=== PATIENT | female | born 1960 | race Caucasian/White ===

== ENCOUNTER 2023-01-07 18:22 | Emergency (ER) | payer MEDICAID ==
[~2023-01-07] VITALS: Ht 167.6 cm; Wt 104.6 kg
[~2023-01-07 18:22] MED LIST: ALPR-304 PO
[2023-01-07 19:22] VITALS: BP 145/100; PULSE 87; RESP 18; TEMP 99.8; O2SAT 96
[2023-01-07] MEDS ORDERED: CLIN-214 PO (22:32)
[2023-01-07] MEDS ORDERED: ACET-1059 PO (22:32)
[2023-01-07] MEDS ORDERED: clindamycin 150mg capsule PO ONE (22:35)
[2023-01-07] MEDS ORDERED: acetaminophen 325mg tablet PO ONE (22:35)
== END 2023-01-07 22:55 | disposition home or self-care (01) ==
LOC: ER 18:23
DX: K08.89 Other specified disorders of teeth and supporting structures (principal); J45.909 Unspecified asthma, uncomplicated; Z87.442 Personal history of urinary calculi; Z88.5 Allergy status to narcotic agent; Z88.6 Allergy status to analgesic agent; Z88.1 Allergy status to other antibiotic agents; Z79.899 Other long term (current) drug therapy; Z79.1 Long term (current) use of non-steroidal anti-inflammatories (NSAID); Z79.2 Long term (current) use of antibiotics
CPT/HCPCS: 99283

== ENCOUNTER 2023-07-23 12:25 | Emergency (ER) | payer MEDICAID ==
[~2023-07-23] VITALS: Ht 167.6 cm; Wt 103.1 kg
[~2023-07-23 12:25] MED LIST changes: +CLIN-214 PO
[2023-07-23 12:36] VITALS: BP 131/89; PULSE 68; RESP 18; O2SAT 98
[2023-07-23] MEDS ORDERED: ACET-3068 PO (13:13)
[2023-07-23] MEDS ORDERED: AMOX600S74 PO (13:13)
[2023-07-23 13:22] VITALS: TEMP 97.8
== END 2023-07-23 13:23 | disposition home or self-care (01) ==
LOC: ER 12:26
DX: K04.7 Periapical abscess without sinus (principal); J45.909 Unspecified asthma, uncomplicated; Z87.442 Personal history of urinary calculi; Z88.5 Allergy status to narcotic agent; Z88.1 Allergy status to other antibiotic agents; Z88.6 Allergy status to analgesic agent; Z79.899 Other long term (current) drug therapy; Z79.1 Long term (current) use of non-steroidal anti-inflammatories (NSAID)
CPT/HCPCS: 99283

== ENCOUNTER 2023-08-12 20:48 | Emergency (ER) | payer MEDICAID ==
[~2023-08-12] VITALS: Ht 170.2 cm; Wt 105.0 kg
[~2023-08-12 20:48] MED LIST changes: +ACET-3068 PO
[2023-08-12 20:58] VITALS: TEMP 99.4
[2023-08-12 21:27] VITALS: BP 141/74; PULSE 84; RESP 14; O2SAT 96
[2023-08-12] MEDS ORDERED: ACET-3068 PO (22:48)
[2023-08-12] MEDS ORDERED: AMOX-117 PO (22:48)
[2023-08-12] MEDS: amox tr/potassium clavulanate 875/125mg TAB PO ONE (22:52)
[2023-08-12] MEDS ORDERED: AMOX600S74 PO (22:57)
== END 2023-08-12 23:21 | disposition home or self-care (01) ==
LOC: ER 20:49
DX: K08.89 Other specified disorders of teeth and supporting structures (principal); J45.909 Unspecified asthma, uncomplicated; Z87.442 Personal history of urinary calculi; Z88.6 Allergy status to analgesic agent; Z88.5 Allergy status to narcotic agent; Z79.899 Other long term (current) drug therapy
CPT/HCPCS: 99283

== ENCOUNTER 2023-10-14 11:11 | Outpatient (CLI) | payer MEDICAID | END 2023-10-14 23:59 | disposition home or self-care (01) | LOC: RAD 11:11 | PROVIDERS: ATTEND Family Medicine | DX: I87.2 Venous insufficiency (chronic) (peripheral) (principal); M71.22 Synovial cyst of popliteal space [Baker], left knee; R60.0 Localized edema | CPT/HCPCS: 93970 ==

== ENCOUNTER 2023-11-07 20:54 | Emergency (ER) | payer MEDICAID ==
[~2023-11-07] VITALS: Ht 170.2 cm; Wt 91.4 kg
[2023-11-07 21:07] VITALS: TEMP 97.5
[2023-11-08] MEDS ORDERED: CEPH-585 PO (01:13)
[2023-11-08] MEDS ORDERED: KEF125L PO (01:32)
[2023-11-08] MEDS: cephalexin 500mg capsule PO ONE (01:34)
[2023-11-08 01:51] VITALS: BP 129/90; PULSE 84; RESP 16; O2SAT 96
== END 2023-11-08 02:03 | disposition home or self-care (01) ==
LOC: ER 20:55
DX: L30.9 Dermatitis, unspecified (principal); J45.909 Unspecified asthma, uncomplicated; Z88.5 Allergy status to narcotic agent; Z88.6 Allergy status to analgesic agent; Z88.1 Allergy status to other antibiotic agents; Z88.8 Allergy status to other drugs, medicaments and biological substances; Z98.51 Tubal ligation status
CPT/HCPCS: 99284

== ENCOUNTER 2024-02-15 21:17 | Emergency (ER) | payer MEDICAID ==
[~2024-02-15] VITALS: Ht 165.1 cm; Wt 90.9 kg
[~2024-02-15 21:17] MED LIST changes: +CEPH-585 PO
[2024-02-15] MEDS ORDERED: AMOX-580 PO (21:49)
[2024-02-15 21:55] VITALS: BP 144/84; PULSE 78; RESP 18; TEMP 98.6; O2SAT 98
== END 2024-02-15 21:56 | disposition home or self-care (01) ==
LOC: ER 21:17
DX: K08.89 Other specified disorders of teeth and supporting structures (principal); J45.909 Unspecified asthma, uncomplicated; Z88.5 Allergy status to narcotic agent; Z88.1 Allergy status to other antibiotic agents; Z88.6 Allergy status to analgesic agent; Z79.2 Long term (current) use of antibiotics; Z79.1 Long term (current) use of non-steroidal anti-inflammatories (NSAID); Z79.899 Other long term (current) drug therapy; Z98.51 Tubal ligation status
CPT/HCPCS: 99283

== ENCOUNTER 2024-04-04 17:23 | Emergency (ER) | payer MEDICAID ==
[~2024-04-04] VITALS: Ht 170.2 cm; Wt 99.1 kg
[2024-04-04 17:26] VITALS: BP 161/86; PULSE 99; RESP 16; TEMP 98.7; O2SAT 96
[2024-04-04] MEDS ORDERED: AMOX400S76 PO (17:50)
[2024-04-04] MEDS ORDERED: ACET10EL PO (17:50)
== END 2024-04-04 18:09 | disposition home or self-care (01) ==
LOC: ER 17:23
DX: K08.89 Other specified disorders of teeth and supporting structures (principal); J45.909 Unspecified asthma, uncomplicated; Z88.1 Allergy status to other antibiotic agents; Z88.6 Allergy status to analgesic agent; Z88.5 Allergy status to narcotic agent; Z98.51 Tubal ligation status; Z87.442 Personal history of urinary calculi
CPT/HCPCS: 99283

== ENCOUNTER 2024-08-20 20:35 | Emergency (ER) | payer MEDICAID ==
[~2024-08-20] VITALS: Ht 170.2 cm; Wt 101.3 kg
[2024-08-20 20:44] VITALS: BP 163/89; PULSE 86; RESP 17; O2SAT 98
== END 2024-08-20 21:17 | disposition home or self-care (01) ==
LOC: ER 20:35
DX: R63.1 Polydipsia (principal); R35.89 Other polyuria; J45.909 Unspecified asthma, uncomplicated; Z87.440 Personal history of urinary (tract) infections; Z88.0 Allergy status to penicillin; Z88.5 Allergy status to narcotic agent; Z88.6 Allergy status to analgesic agent; Z98.51 Tubal ligation status; Z88.1 Allergy status to other antibiotic agents
CPT/HCPCS: 82948; 99282

== ENCOUNTER 2025-03-11 11:23 | Emergency (ER) | payer MEDICAID ==
[~2025-03-11] VITALS: Ht 170.2 cm; Wt 102.3 kg
[~2025-03-11 11:23] MED LIST changes: -CEPH-585 PO
[2025-03-11 11:26] VITALS: BP 151/91; PULSE 92; RESP 18; TEMP 98.4; O2SAT 97
--- NOTE | 2025-03-11 12:20 | Physician Documentation ---
History of Present Illness ~ Chief Complaint: Allergic Reaction Stated Complaint: MED REACTION Time Seen by MD: 12:14 Primary Medical Doctor: [facility] Source: patient Mode of Arrival: POV Exam Limitations: no limitations HPI 64-year-old with dental infection currently on Augmentin liquid on day 2 she is currently taking 3 doses. Patient noticed a little redness and swelling to the gums to the affected tooth in the front and was concerned it was an allergic reaction. There is no other site in her mouth no swelling to her lips no difficulty breathing but she states that she does have difficulty chewing so that is why she had liquid antibiotics. Patient would like medications for pain Medication Reconciliation Allergies: Coded Allergies: Oxycodone Terephthalate (Verified Allergy, Unknown, 03/11/25) acetaminophen (Verified Allergy, Unknown, 03/11/25) amoxicillin (Verified Allergy, Unknown, 03/11/25) aspirin (Verified Allergy, Unknown, 03/11/25) clindamycin (Verified Allergy, Unknown, 03/11/25) ibuprofen (Verified Allergy, Unknown, 03/11/25) naproxen (Verified Allergy, Unknown, 07/23/23) oxycodone HCl (Verified Allergy, Unknown, 07/23/23) prochlorperazine (Verified Allergy, Unknown, 04/04/24) prochlorperazine edisylate (Verified Allergy, Unknown, 01/07/23) prochlorperazine maleate (Verified Allergy, Unknown, 01/07/23) propoxyphene HCl (Verified Allergy, Unknown, 01/07/23) Uncoded Allergies: DARVOCET (Allergy, Unknown, 01/07/23) ERYTHROMYCIN (Allergy, Unknown, 01/07/23) PCN (Allergy, Unknown, 01/07/23) Scheduled Clindamycin HCl (Clindamycin HCl CAPSULE), 1 CAP PO TID Scheduled PRN Acetaminophen With Codeine (Tylenol W/Codeine #3 Tab), 1 TAB PO TID PRN PRN for dental pain Alprazolam* (Xanax*), 0.25 MG PO TID PRN for for anxiety/agitation Past Medical History Past Medical History: Asthma, Kidney Stones Past Surgical History: tubal ligation Alcohol Use: None Drug Use: none Review of Systems All Other Systems at this time: Reviewed and Negative ENT: Reports: see HPI Physical Exam Vital Signs: RN Vital Signs have been reviewed: Yes, Temperature: 98.4, Source: Temporal, Heart Rate: 92, Respiratory Rate: 18, BP: 151/91, Pulse Oximetry: 97, Weight: 102.300 Oxygen Flow Rate: 0 Physical Exam General: Alert, no apparent distress. HEENT: moist mucous membranes. Minimal swelling but erythema to the gum lines to tooth 7. And 8 no obvious fluctuance or abscess otherwise unremarkable Neck: Full range of motion. Respiratory: No respiratory distress speaking in full sentences Chest: No accessory muscle use. Cardiovascular: Appears well perfused Neurologic: Oriented x4. Psychiatric: Normal mood and affect. Skin: Normal color, warm and dry. No edema, no ecchymosis. Progress Results/Orders Results/Orders Vital Signs 03/11/25 11:26 Temp 98.4 Pulse 92 Resp 18 B/P (MAP) 151/91 Pulse Ox 97 O2 Flow Rate 0 Medical Decision Making Findings Patient is on antibiotics noticed some swelling and redness to the gums of the affected teeth that she is currently being treated for with Augmentin dental infection. Patient was concerned it was allergic reaction although no erythema or swelling to her mouth no decreased ability to swallow but to chew which is the reason she is on liquid medications sometimes she has difficulty swallowing but that is not currently new. No other areas that would be indicative of an allergic reaction. Patient is requesting a liquid form pain medication for a couple of days and will follow up Departure Time of Disposition: 12:19 Disposition: 01 HOME / SELF CARE / HOMELESS Impression: Primary Impression: Toothache Condition: Stable Discharge Instructions: Abscessed Tooth, [id number] Additional Instructions: Continue to take oral antibiotics and use pain medication as prescribed follow up with primary care and dental care for further treatment and evaluation tried the origin on the gauze to help with the pain of those gums. Referrals: NO PRIMARY CARE PROVIDER (PCP) Prescriptions Acetaminophen With Codeine (Tylenol W/Codeine #3 Tab) 300 Mg-30 Mg Tablet 1 TAB PO TID PRN PRN for dental pain for 4 Days, #12 TAB Prov: DIVINA JAMESON [employer] 03/11/25 Education Educated: Patient Educated regarding: diagnosis, treatment, need for follow up Signature Scribe Signature: No scribe Attestation: The note accurately reflects work and decisions made by me.Divina NEGRO 03/11/25 12:25 DIVINA JAMESON NP Mar 11, 2025 12:20
[2025-03-11] MEDS ORDERED: ACET-3068 PO (12:24)
== END 2025-03-11 13:06 | disposition home or self-care (01) ==
LOC: ER 11:24
DX: K08.89 Other specified disorders of teeth and supporting structures (principal); J45.909 Unspecified asthma, uncomplicated; Z87.440 Personal history of urinary (tract) infections; Z88.0 Allergy status to penicillin; Z88.1 Allergy status to other antibiotic agents; Z88.5 Allergy status to narcotic agent; Z88.6 Allergy status to analgesic agent; Z98.51 Tubal ligation status
CPT/HCPCS: 99282; 99283